=== PATIENT | female | born 1995 | race Two or more races ===

== ENCOUNTER 2020-07-13 13:43 | Outpatient (REF) | payer BC, SELFPAY ==
[2020-07-13 15:11] LABS: HBS Num1 1.77 mIU/mL (0-7.99); ~Hepatitis B Surface Antibody NONREACTIVE (Nonreactive)
[2020-07-15 01:27] LABS: Mumps Virus IgG Antibody <9.00 AU/mL; Rubeola IgG (Measles) >300.00 AU/mL
[2020-07-16 16:02] LABS: TS Negative Control Passed; TS Panel A 0; TS Panel B 2; TS Positive Control Passed; TSpotTB Negative (SeeBelow)
== END 2020-07-13 13:44 | disposition home or self-care (01) ==
LOC: HO.LNP 13:43
PROVIDERS: Visit Provider Internal Medicine
DX: Z02.1 Encounter for pre-employment examination (principal)
CPT/HCPCS: 86481; 86706; 86735; 86762; 86765; 86787

== ENCOUNTER 2020-07-25 08:04 | Outpatient (REF) | payer OTHER, SELFPAY ==
[2020-07-29 09:39] LABS: SARS-COV-2 PCR UMBRL Not Detected
== END 2020-07-25 08:05 | disposition home or self-care (01) ==
LOC: HO.EMPCOV 08:04
PROVIDERS: Visit Provider Internal Medicine
DX: Z20.828 Contact with and (suspected) exposure to other viral communicable diseases (principal)
CPT/HCPCS: C9803; U0003

== ENCOUNTER 2020-07-31 10:50 | Outpatient (REF) | payer OTHER, SELFPAY ==
[2020-08-05 10:00] LABS: SARS-COV-2 PCR UMBRL NOT DETECTED
== END 2020-07-31 10:51 | disposition home or self-care (01) ==
LOC: HO.LAB 10:50
PROVIDERS: Visit Provider Internal Medicine
DX: Z20.828 Contact with and (suspected) exposure to other viral communicable diseases (principal)
CPT/HCPCS: 36415; C9803; U0003

== ENCOUNTER 2020-08-07 10:43 | Outpatient (REF) | payer OTHER, SELFPAY ==
[2020-08-07 11:03] LABS: COVID-19 Test Negative (Negative)
== END 2020-08-07 10:44 | disposition home or self-care (01) ==
LOC: HO.EMPCOV 10:43
PROVIDERS: Visit Provider Internal Medicine
DX: Z20.822 Contact with and (suspected) exposure to COVID-19 (principal)
CPT/HCPCS: 36415; 87635; C9803